=== PATIENT | female | born 1970 | race Two or more races ===

== ENCOUNTER 2019-05-21 00:20 | Emergency (ER) | payer MEDICAID ==
[~2019-05-21] VITALS: Ht 157.5 cm; Wt 63.5 kg
[2019-05-21] MEDS ORDERED: HYDROcodone-ACET 7.5/325MG TAB PO ONE (05:00)
[2019-05-21] MEDS ORDERED: BACLOFEN 10 MG TAB PO ONE (05:00)
[2019-05-21 05:07] VITALS: BP 142/85
== END 2019-05-21 05:50 | disposition home or self-care (01) ==
LOC: EDBD 00:20 → ER 00:26
DX: M54.2 Cervicalgia (principal); M62.830 Muscle spasm of back; V43.52XA Car driver injured in collision with other type car in traffic accident, initial encounter; Y93.89 Activity, other specified; Y92.488 Other paved roadways as the place of occurrence of the external cause; Y99.8 Other external cause status
CPT/HCPCS: 70450; 72125; 74176

== ENCOUNTER → 2024-08-25 | Outpatient (CLI) | payer MEDICAID | END | disposition home or self-care (01) | LOC: Rad HDHVI 08:10 | PROVIDERS: ATTEND Internal Medicine Cardiovascular Disease | DX: R06.02 Shortness of breath (principal); R07.89 Other chest pain | CPT/HCPCS: 93306 ==

== ENCOUNTER → 2024-08-30 | Outpatient (CLI) | payer MEDICAID ==
[~2024-08-30] MED LIST: IOHEXOL 350 MG/ML 100ML IJ ONE
[2024-08-30 09:00] VITALS: BP 171/100; PULSE 69; RESP 20; O2SAT 98
[2024-08-30 09:20] VITALS: BP 169/93; PULSE 75; RESP 18; O2SAT 98
== END | disposition home or self-care (01) ==
LOC: Rad HDHVI 08:41
PROVIDERS: ATTEND Internal Medicine Cardiovascular Disease
DX: R06.02 Shortness of breath (principal); R06.2 Wheezing; R07.9 Chest pain, unspecified
CPT/HCPCS: 71260; G0463; Q9967

== ENCOUNTER → 2024-09-05 | Outpatient (CLI) | payer MEDICAID ==
[~2024-09-05] VITALS: Ht 152.4 cm; Wt 50.8 kg
== END | disposition home or self-care (01) ==
LOC: Rad HDHVI 09:14
PROVIDERS: ATTEND Internal Medicine Cardiovascular Disease
DX: I10 Essential (primary) hypertension (principal); R06.02 Shortness of breath; R07.89 Other chest pain; E78.00 Pure hypercholesterolemia, unspecified
CPT/HCPCS: 78452; 93017; 96374; A9500